=== PATIENT | female | born 1985 | race Two or more races ===

== ENCOUNTER 2018-03-03 20:53 | Inpatient (IN) | payer MEDICAID ==
[~2018-03-03] VITALS: Ht 172.7 cm; Wt 69.1 kg
[2018-03-03 21:44] LABS: Urine Bacteria NONE SEEN /hpf (None Seen); Urine Blood 2+ /uL (Negative); Urine Specific Gravity 1.001 (1.001-1.035); Urine WBC 5 /hpf (0 - 5)
[2018-03-03 21:52] LABS: Basophils # (auto) 0 uL; Basophils % (auto) 0.2 % (0.0-2.0); Eosinophils # (auto) 0.2 uL; Eosinophils % (auto) 1.7 % (0.0-7.0); Hematocrit 40.6 % (36.0-46.0); Hemoglobin 13.6 g/dL (12.2-16.2); Lymphocytes # (auto) 0.7 uL; Lymphocytes % (auto) 7.5 % (10.0-50.0); Mean Corpuscular Hemoglobin 30.7 pg (28.0-32.0); Mean Corpuscular Hgb Conc. 33.5 g/dL (32.0-36.0); Mean Corpuscular Volume 91.8 fL (80.0-100.0); Monocytes # (auto) 0.7 uL; Monocytes % (auto) 7.2 % (0.0-12.0); Neutrophils # (auto) 7.8 uL; Neutrophils % (auto) 83.4 % (37.0-80.0); Platelet Count (auto) 274 10^3/uL (140-450); Red Blood Cells 4.42 10^6/uL (4.0-5.20); Red Cell Distribution Width 14.2 % (11.8-14.3); White Blood Cell 9.4 10^3/uL (4.4-10.8)
[2018-03-03 21:57] LABS: Albumin 3.9 g/dL (3.4-5.0); Anion Gap 4 (5-15); Blood Urea Nitrogen 5 mg/dL (7-18); Calcium 8.4 mg/dL (8.5-10.1); Carbon Dioxide 29 mmol/L (21-32); Chloride 105 mmol/L (98-107); Glucose 110 mg/dL (74-106); Potassium 3.9 mmol/L (3.5-5.1); Sodium 138 mmol/L (136-145)
[2018-03-03 22:01] LABS: Alanine Aminotransferase 36 U/L (13-56); Alkaline Phosphatase 59 U/L (45-117); Aspartate Aminotransferase 18 U/L (15-37); BUN/Creatinine Ratio 9.1; Bilirubin, Total 0.5 mg/dL (0.2-1.0); GFR African American > 60 mL/min; GFR Non-African American > 60 mL/min; Total Protein 7.3 g/dL (6.4-8.2)
[2018-03-04] MEDS ORDERED: MAGNESIUM CITRATE SOLUTION 300 ML BTL PO ONE (00:45)
[2018-03-04] MEDS ORDERED: ONDANSETRON HCL 4 MG/2 ML VIAL IV ONE ×2 (00:45→15:15)
[2018-03-04] MEDS ORDERED: SODIUM CHLORIDE 0.9% 1,000 ML IV ONE (00:45)
[2018-03-04] MEDS ORDERED: MORPHINE SULFATE 10 MG/ML INJ 1ML SDV IV ONE ×2 (00:45→16:00)
[2018-03-04] MEDS ORDERED: HYDROcodone-ACET 5/325MG TAB PO ONE (03:45)
[2018-03-04] MEDS ORDERED: cefTRIAXone 1GM/50ML D5W 50 ML IV ONE (06:29)
[2018-03-04] MEDS ORDERED: ONDANSETRON HCL 4 MG/2 ML VIAL IV PRN (06:30)
[2018-03-04] MEDS: SODIUM CHLORIDE 0.9% 1,000 ML IV SCH ×2 (06:35→09:38)
[2018-03-04] MEDS: cefTRIAXone 1GM/50ML D5W 50 ML IV SCH ×2 (06:36→09:38)
[2018-03-04 07:13] LABS: INR 0.94 (0.9-1.15); Partial Thromboplastin Time 29.4 sec (23.78-33.04); Prothrombin Time 10.1 sec (9.27-12.13)
--- NOTE | 2018-03-04 07:40 | NUR ---
MS admit from [facility] admitted to tele/MS after SBAR received. Patient oriented to TOMEKA FINE RN primary RN, unit, room, bed, and unit policies regarding patient care and visiting hours. Patient weighed by bedscale and encouraged to call if they need something. All questions and concerns addressed, patient verbalized understanding. Patient reports no current N/V or pain.
[2018-03-04] MEDS: PANTOPRAZOLE 40 MG/10 ML VIAL IV SCH (09:38)
[2018-03-04 10:14] VITALS: BP 106/76
--- NOTE | 2018-03-04 11:16 | NUR ---
Surgical consult completed Dr. Buchanan came by to see patient and per patient is planning on doing the surgery today.
--- NOTE | 2018-03-04 12:48 | NUR ---
Transported to Pre-op Patient transported to pre-op without any S/S of distress noted. Report given to Divya.
[2018-03-04 13:00] VITALS: BP 102/36
[2018-03-04] MEDS ORDERED: POVIDONE IODINE 10 % TOPICAL OINT 30GM TOP ONE (13:25)
[2018-03-04] MEDS ORDERED: ceFAZolin 1GM/50ML 50 ML IV ONE (14:15)
[2018-03-04] MEDS ORDERED: MIDAZOLAM HCL 1MG/1ML-2 ML VIAL ONE (14:21)
[2018-03-04] MEDS ORDERED: fentaNYL CITRATE 100 MCG/2 ML VL ONE (14:21)
[2018-03-04] MEDS ORDERED: MEPERIDINE HCL (50 MG/ML) 1 ML VIAL ONE (14:22)
[2018-03-04] MEDS ORDERED: PROPOFOL 10 MG/ML 20 ML IV ONE (14:24)
[2018-03-04] MEDS ORDERED: DEXAMETHASONE SOD PHOS 10MG/1ML VIAL INJ ONE (14:24)
[2018-03-04] MEDS ORDERED: NEOSTIGMINE 1 MG/ML INJ (10mg/10ML VIAL) ONE (14:57)
[2018-03-04] MEDS ORDERED: GLYCOPYRROLATE 0.2 MG/ML 1ML VIAL ONE (14:57)
[2018-03-04] MEDS ORDERED: MIDAZOLAM HCL 1MG/1ML-2 ML VIAL IV PRN (15:15)
[2018-03-04] MEDS ORDERED: KETOROLAC TROMETH 30 MG/ML 1ML VIAL IV ONE (15:15)
[2018-03-04] MEDS ORDERED: LABETALOL HCL 5 MG/ML 4ML SYRINGE IV PRN (15:15)
[2018-03-04] MEDS ORDERED: ePHEDrine SULFATE 50 MG/ML AMP IV PRN (15:15)
[2018-03-04] MEDS ORDERED: HYDROmorphone HCL 2 MG/ML VL IV PRN (15:15)
[2018-03-04] MEDS ORDERED: MORPHINE SULFATE 10 MG/ML INJ 1ML SDV IV PRN (15:15)
--- NOTE | 2018-03-04 16:20 | NUR ---
Back to room Patient back to floor from PACU without S/S of distress. Three lap sites to midline of abdomen with gauze/tegaderm dressings dry and intact. Dressings do have small amounts of betadine visualized. Abdominal binder replaced. Patient given incentive spirometer and educated on doing this every 10 minutes while awake. Patient re-educated to call if needing any assistance regarding pain, nausea, or any other issues. Patient verbalized understanding.
[2018-03-04 17:06] VITALS: BP 121/71
--- NOTE | 2018-03-04 17:45 | NUR ---
MD called Dr. Owusu called to check on patient and this RN reported no nausea, vomiting, and pain noted at 5 currently. However, patient reports she would not like to take any medication at this time.
[2018-03-04] MEDS: MORPHINE SULFATE 10 MG/ML INJ 1ML SDV IV PRN (18:55)
--- NOTE | 2018-03-04 19:30 | NUR ---
Opening Shift Note Assumed care of patient, awake and alert. No S/S of distress/SOB. Patient's family at bedside. Bed locked in lowest position, 2 upper side rails up, call light and bedside table within reach. Instructed on POC and to call for assist PRN, will continue to monitor for changes Q1hr and PRN.
[2018-03-04 22:00] VITALS: BP 94/62
[2018-03-05] MEDS: MORPHINE SULFATE 10 MG/ML INJ 1ML SDV IV PRN ×2 (00:51→06:00)
[2018-03-05 04:56] VITALS: BP 106/67
[2018-03-05 05:43] LABS: Basophils # (auto) 0 uL; Basophils % (auto) 0.1 % (0.0-2.0); Eosinophils # (auto) 0 uL; Hematocrit 38.3 % (36.0-46.0); Hemoglobin 12.9 g/dL (12.2-16.2); Lymphocytes # (auto) 0.8 uL; Lymphocytes % (auto) 9.1 % (10.0-50.0); Mean Corpuscular Hemoglobin 30.9 pg (28.0-32.0); Mean Corpuscular Hgb Conc. 33.6 g/dL (32.0-36.0); Mean Corpuscular Volume 91.9 fL (80.0-100.0); Monocytes # (auto) 0.7 uL; Monocytes % (auto) 7.6 % (0.0-12.0); Neutrophils # (auto) 7.4 uL; Neutrophils % (auto) 83.2 % (37.0-80.0); Platelet Count (auto) 285 10^3/uL (140-450); Red Blood Cells 4.17 10^6/uL (4.0-5.20); Red Cell Distribution Width 14.1 % (11.8-14.3); White Blood Cell 8.9 10^3/uL (4.4-10.8)
[2018-03-05 05:57] LABS: Albumin 3.1 g/dL (3.4-5.0); Anion Gap 8 (5-15); Blood Urea Nitrogen 8 mg/dL (7-18); Calcium 8.2 mg/dL (8.5-10.1); Carbon Dioxide 23 mmol/L (21-32); Chloride 105 mmol/L (98-107); Glucose 112 mg/dL (74-106); Potassium 4.2 mmol/L (3.5-5.1); Sodium 136 mmol/L (136-145)
[2018-03-05 06:01] LABS: Alanine Aminotransferase 26 U/L (13-56); Alkaline Phosphatase 54 U/L (45-117); Aspartate Aminotransferase 13 U/L (15-37); Bilirubin, Total 0.4 mg/dL (0.2-1.0); Total Protein 6.5 g/dL (6.4-8.2)
[2018-03-05] MEDS: SODIUM CHLORIDE 0.9% 1,000 ML IV SCH (06:01)
[2018-03-05 06:11] LABS: GFR African American > 60 mL/min; GFR Non-African American > 60 mL/min
--- NOTE | 2018-03-05 07:25 | NUR ---
Morning note Report received and bedside handoff completed. Patient observed awake, alert, and without S/S of distress. Patient is reporting her pain is still 7/10 after being given morphine. Patient denies any nausea or vomiting throughout the night. She states she has been tolerating her diet, but has not been ambulating like encouraged yesterday evening. Patient re-encouraged to ambulate at least after every meal and this will help to get her bowels moving and her pass gas. POC discussed in regards to possible diet increase and oral pain medications added once discussing with MD. Patient verbalized understanding and has call todd within reach if needing assistance.
[2018-03-05 08:33] VITALS: BP 111/72
[2018-03-05] MEDS: cefTRIAXone 1GM/50ML D5W 50 ML IV SCH (08:38)
[2018-03-05] MEDS: PANTOPRAZOLE 40 MG/10 ML VIAL IV SCH (10:03)
--- NOTE | 2018-03-05 11:31 | NUR ---
MD Makayla Owusu rounding on patient requested this RN page Dr. Gao for recommendation for pain medication and clearance to advance patient's diet. Awaiting call back.
[2018-03-05] MEDS ORDERED: HYDR-4683 PO (11:59)
[2018-03-05] MEDS ORDERED: ACET-1156 PO (12:10)
--- NOTE | 2018-03-05 12:18 | NUR ---
Surgeon repaged Dr. Gao repaged for clearance of discharge and recommendation for diet. No call back yet.
[2018-03-05 12:32] VITALS: BP 104/74
--- NOTE | 2018-03-05 13:15 | NUR ---
Surgeon returned call Dr. Gao returned call and stated the patient is clear for discharge.
[2018-03-05 13:30] VITALS: BP 111/72
--- NOTE | 2018-03-05 14:10 | NUR ---
Discharge Discharge instructions reviewed with patient and family at bedside. All questions and concerns addressed. Patient's IV discontinued without complication. Patient reporting she wants to walk off floor with family and does not need wheelchair to take her down.
== END 2018-03-05 17:41 | disposition home or self-care (01) | DRG 234 ==
LOC: ER 20:53 → OVERFLOW 03-04 06:15 → WEST WING 03-04 07:44
PROVIDERS: ADMIT Nurse Practitioner; ATTEND Internal Medicine
PROC: 0DTJ4ZZ Resection of Appendix, Percutaneous Endoscopic Approach (ICD-10-PCS; principal; 2018-03-04 14:16)
DX: K35.80 Unspecified acute appendicitis (principal); E11.9 Type 2 diabetes mellitus without complications
CPT/HCPCS: 36415; 71045; 74176; 76705; 80053; 81001; 81025; 85025; 85610; 85730; 86850; 86900; 86901; C9113; G0378; J0690; J0696; J1100; J2250; J2405; J2704